=== PATIENT | female | born 1960 | race African-American/Black ===

== ENCOUNTER 2018-06-12 10:40 | Emergency (ER) | payer MEDICAID, MEDICARE ==
[~2018-06-12] VITALS: Ht 160 cm; Wt 73.0 kg
[2018-06-12] MEDS ORDERED: IBUPROFEN 600MG TABLET PO ONE (11:45)
[2018-06-12 12:13] VITALS: BP 115/65
== END 2018-06-12 13:44 | disposition home or self-care (01) ==
LOC: ER 10:40
DX: M65.842 Other synovitis and tenosynovitis, left hand (principal); Z98.890 Other specified postprocedural states
CPT/HCPCS: 29125; 99283; A4565

== ENCOUNTER 2020-08-17 18:33 | Emergency (ER) | payer MEDICAID, MEDICARE ==
[~2020-08-17] VITALS: Ht 160 cm; Wt 80.0 kg
[2020-08-17] MEDS ORDERED: IBUPROFEN 600MG TABLET PO ONE (19:30)
[2020-08-17] MEDS ORDERED: IBUP-2029 MT (20:45)
[2020-08-17 20:49] VITALS: BP 135/67
== END 2020-08-17 21:02 | disposition home or self-care (01) ==
LOC: ER 18:33
DX: S20.219A Contusion of unspecified front wall of thorax, initial encounter (principal); S90.01XA Contusion of right ankle, initial encounter; S60.221A Contusion of right hand, initial encounter; Z98.890 Other specified postprocedural states; V43.52XA Car driver injured in collision with other type car in traffic accident, initial encounter; Y93.89 Activity, other specified; Y92.488 Other paved roadways as the place of occurrence of the external cause
CPT/HCPCS: 71045; 73130; 73560; 73610; 99284